=== PATIENT | female | born 1975 | race American Indian/Alaskan Native ===

== ENCOUNTER 2020-08-19 15:16 | Emergency (ER) | payer BC ==
--- NOTE | 2020-08-19 15:42 | Event Note ---
ED Screening Note Date of service: 08/19/20 Time: 15:38 ED Screening Note: The patient was evaluated in the emergency department for symptoms described in the history of present illness. He/she was evaluated in the context of the global COVID-19 pandemic, which necessitated consideration that the patient might be at risk for infection with the virus that causes COVID-19. Institutional protocols and algorithms that pertain to the evaluation of patients at risk for COVID-19 are in a state of rapid change based on information released by regulatory bodies including the CDC and federal and state organizations. These policies and algorithms were followed during the patient's care in the emergency department. Please note that these policies, procedures and recommendations changed on a rapid basis. 44-year-old -[place] female presents to the emergency room reporting she has had a rash to her back for about a week and now having urinary frequency and urgency for about 2 weeks. Patient states that she had a history of a kidney stone in the past. She currently has hypertension. She has had a cholecystectomy and a . Last menstrual period was 08/05/2020. Has nausea no vomiting with headache no acute fever or chills. This initial assessment/diagnostic orders/clinical plan/treatment(s) is/are subject to change based on patients health status, clinical progression and re- assessment by fellow clinical providers in the ED. Further treatment and workup at subsequent clinical providers discretion. Patient/guardian urged not to elope from the ED as their condition may be serious if not clinically assessed and managed. Initial orders include:
[2020-08-19 16:04] LABS: Bacteria,Urine 2+ /HPF (Negative); Bilirubin,Urine NEG (Negative); Blood,Urine NEG (Negative); Color,Urine Yellow (Yellow); Mucus,Urine FEW /HPF; Protein,Urine <15 mg/dL mg/dL (Negative); Urobilinogen,Urine < 2.0 mg/dL (<2.0)
--- NOTE | 2020-08-19 19:39 | Emergency Department Report ---
ED Abdominal Pain HPI - General Chief Complaint: Abdominal Pain Stated Complaint: ABD PAIN/RASH/BACK/FREQUENT URINE Time Seen by Provider: 08/19/20 19:34 Source: patient Mode of arrival: Ambulatory Limitations: No Limitations - History of Present Illness Initial Comments: The patient was evaluated in the emergency department for symptoms described in the history of present illness. He/she was evaluated in the context of the global COVID-19 pandemic, which necessitated consideration that the patient might be at risk for infection with the virus that causes COVID-19. Institutional protocols and algorithms that pertain to the evaluation of patients at risk for COVID-19 are in a state of rapid change based on information released by regulatory bodies including the CDC and federal and state organizations. These policies and algorithms were followed during the patient's care in the emergency department. Please note that these policies, procedures and recommendations changed on a rapid basis. 44-year-old -[place] female presents to the emergency room reporting she has had a rash to her back for about a week and now having urinary frequency and urgency for about 2 weeks. Patient states that she had a history of a kidney stone in the past. She currently has hypertension. She has had a cholecystectomy and a . Last menstrual period was 08/05/2020. Has nausea no vomiting with headache no acute fever or chills. MD Complaint: abdominal pain Onset/Timin -: week(s) Location: suprapubic Severity scale (0 -10): 8 Consistency: intermittent Improves With: other Worsens With: other Associated Symptoms: other (Rash to the middle of her back, increased urinary frequency denies any vaginal discharge vaginal bleeding no new sexual partner). denies: nausea, vomiting, diarrhea, dysuria - Related Data LMP Date: 08/05/20 Previous Rx's Medication Instructions Recorded Last Taken Type Hydrocortisone [Hydrocortisone 1% 15 gm TP TID PRN #14.2 cream..g. 08/19/20 Unknown Rx CREAM] Allergies Allergy/AdvReac Type Severity Reaction Status Date / Time No Known Allergies Allergy Unverified 08/19/20 15:21 ED Review of Systems ROS: Stated complaint: ABD PAIN/RASH/BACK/FREQUENT URINE Other details as noted in HPI Comment: All other systems reviewed and negative ED Past Medical Hx - Past Medical History Previous Medical History?: Yes Hx Hypertension: Yes - Surgical History Past Surgical History?: Yes Hx Cholecystectomy: Yes Additional Surgical History: , Exp lap x 3 - Social History Smoking Status: Never Smoker Substance Use Type: None - Medications Home Medications: Home Medications Medication Instructions Recorded Confirmed Last Taken Type Hydrocortisone [Hydrocortisone 1% 15 gm TP TID PRN #14.2 cream..g. 08/19/20 Unknown Rx CREAM] ED Physical Exam - General Limitations: No Limitations General appearance: alert, in no apparent distress - Head Head exam: Present: atraumatic, normocephalic - Eye Eye exam: Present: normal appearance - ENT ENT exam: Present: mucous membranes moist - Neck Neck exam: Present: normal inspection, full ROM - Respiratory Respiratory exam: Absent: accessory muscle use - Cardiovascular Cardiovascular Exam: Present: regular rate, normal rhythm. Absent: systolic murmur, diastolic murmur, rubs, gallop - GI/Abdominal GI/Abdominal exam: Present: soft. Absent: distended, tenderness, guarding - Extremities Exam Extremities exam: Present: normal inspection, full ROM - Back Exam Back exam: Present: full ROM, rash noted (Midline erythematous maculopapular nontender) - Neurological Exam Neurological exam: Present: alert, oriented X3 - Psychiatric Psychiatric exam: Present: normal affect, normal mood - Skin Skin exam: Present: warm, dry, intact, normal color, rash (Back) ED Course Vital Signs 08/19/20 15:23 Temperature 98.5 F Pulse Rate 71 Respiratory 20 Rate Blood Pressure 141/78 O2 Sat by Pulse 100 Oximetry ED Medical Decision Making - Lab Data Laboratory Results - last 72 hr 08/19/20 08/19/20 15:40 15:57 HCG, Quant < 2 Urine Color Yellow Urine Turbidity Clear Urine pH 7.0 Ur Specific [place] 1.019 Urine Protein <15 mg/dl Urine Glucose (UA) Neg Urine Ketones Neg Urine Blood Neg Urine Nitrite Neg Urine Bilirubin Neg Urine Urobilinogen < 2.0 Ur Leukocyte Esterase Neg Urine WBC (Auto) 1.0 Urine RBC (Auto) 1.0 U Epithel Cells (Auto) 4.0 Urine Bacteria (Auto) 2+ Urine Mucus Few - Medical Decision Making 44-year-old -[place] female presents to the emergency room reporting she has had a rash to her back for about a week and now having urinary frequency and urgency for about 2 weeks. Patient states that she had a history of a kidney stone in the past. She currently has hypertension. She has had a cholecystectomy and a . Last menstrual period was 08/05/2020. Has nausea no vomiting with headache no acute fever or chills. Urinalysis within normal limits, negative test. I discussed the patient I can do a pelvic ultrasound and a STD check. Patient states that she would follow-up with an [employer] [employer] [facility]. Critical care attestation.: If time is entered above; I have spent that time in minutes in the direct care of this critically ill patient, excluding procedure time. ED Disposition Clinical Impression: Suprapubic pain, acute, Rash Disposition: TO HOME OR SELFCARE Is pt being admited?: No Does the pt Need Aspirin: No Condition: Stable Instructions: Abdominal Pain (ED) Additional Instructions: Urinalysis is negative I recommend Tylenol or ibuprofen use the hydrocortisone to the rash and follow-up with [facility] [employer] [facility] and primary care provider. Prescriptions: Hydrocortisone [Hydrocortisone 1% CREAM] 15 gm TP TID PRN #14.2 cream..g. PRN Reason: Rash Referrals: PRIMARY CARE, [Primary Care Provider] - 3-5 Days [facility] [Provider Group] - 3-5 Days Forms: Work/School Release Form(ED)
[2020-08-19 20:29] VITALS: BP 126/81
== END 2020-08-19 20:29 | disposition home or self-care (01) ==
LOC: ED 15:16
DX: R10.2 Pelvic and perineal pain (principal); R21 Rash and other nonspecific skin eruption; I10 Essential (primary) hypertension; Z90.49 Acquired absence of other specified parts of digestive tract; Z98.890 Other specified postprocedural states; Z79.899 Other long term (current) drug therapy
CPT/HCPCS: 36415; 81001; 82962; 84702